=== PATIENT | female | born 1975 | race Asian ===

== ENCOUNTER 2017-01-25 16:45 | Emergency (ER) | payer OTHER ==
[~2017-01-25] VITALS: Ht 149.9 cm; Wt 64.0 kg
[2017-01-25 18:31] LABS: PLATELET COUNT 200 K/uL (152-353)
== END 2017-01-25 18:45 | disposition home or self-care (01) ==
LOC: ED 16:45
DX: R07.89 Other chest pain (principal); C81.70 Other Hodgkin lymphoma, unspecified site
CPT/HCPCS: 85027; 99283

== ENCOUNTER 2018-01-23 21:18 | Emergency (ER) | payer OTHER ==
[~2018-01-23] VITALS: Ht 149.9 cm; Wt 68.0 kg
== END 2018-01-23 22:58 | disposition home or self-care (01) ==
LOC: ED 21:18
DX: R51 Headache (principal); F32.89 Other specified depressive episodes
CPT/HCPCS: 99282

== ENCOUNTER 2020-08-23 14:05 | Outpatient (CLI) | payer OTHER | END 2020-08-23 22:28 | disposition home or self-care (01) | LOC: RAD 14:05 | DX: R06.02 Shortness of breath (principal) ==